=== PATIENT | male | born 1980 ===

== ENCOUNTER 2018-03-28 22:39 | Emergency (ER) | payer MEDICAID, MEDICARE ==
[2018-03-28 22:39] VITALS: BMI 24.3
--- NOTE | 2018-03-28 22:55 | ED PDOC ---
HPI: Psych/Substance Abuse Time Seen by Provider: 03/28/18 22:51 Chief Complaint (Nursing): Alcohol Ingestion Chief Complaint (Provider): etoh History Per: Patient Additional Complaint(s): 37 y/o non-domiciled male presents for evaluation of alcohol intoxication. Patient was found asleep on a bench and admits to alcohol use today. Patient is crying hysterically and yelling upon arrival to ED. In addition to drinking alcohol, patient admits to cocaine use and marijuana use this evening PMD: none Past Medical History Reviewed: Historical Data, Nursing Documentation, Vital Signs Vital Signs: Last Vital Signs Temp 97.9 F 03/28/18 22:48 Pulse 110 H 03/28/18 22:48 Resp 20 03/28/18 22:48 BP 130/77 03/28/18 22:48 Pulse Ox 100 03/28/18 22:48 - Medical History PMH: Anxiety, Post Traumatic Stress Disorder - Surgical History Surgical History: No Surg Hx - Family History Family History: States: No Known Family Hx - Living Arrangements Living Arrangements: Other (non-domiciled) - Social History Alcohol: Social Drugs: Cannabis, Cocaine - Home Medications Home Medications: Ambulatory Orders Medication Instructions Recorded Sertraline [Zoloft] 50 mg PO DAILY 50 Days #50 tab 03/17/18 hydrOXYzine Pamoate [Vistaril] 50 mg PO Q8 PRN 30 Days #90 cap 03/17/18 traZODone [Desyrel] 50 mg PO HS 30 Days #30 tab 03/17/18 - Allergies Allergies/Adverse Reactions: Allergies Allergy/AdvReac Type Severity Reaction Status Date / Time FISH Allergy SWELLING Verified 03/11/18 07:34 Review of Systems ROS Statement: Except As Marked, All Systems Reviewed And Found Negative Psych: Positive for: Other (substance abuse, etoh) Physical Exam - Reviewed Nursing Documentation Reviewed: Yes Vital Signs Reviewed: Yes - Physical Exam Appears: Positive for: Well, Non-toxic, No Acute Distress Skin: Positive for: Normal Color. Negative for: Rash Eye Exam: Positive for: Normal appearance Cardiovascular/Chest: Positive for: Regular Rate, Rhythm Respiratory: Positive for: Normal Breath Sounds. Negative for: Respiratory Distress Back: Negative for: L CVA Tenderness, R CVA Tenderness Extremity: Positive for: Normal ROM Neurologic/Psych: Positive for: Alert, Gait (steady), Other (tearful, yelling) - ECG O2 Sat by Pulse Oximetry: 100 Pulse Ox Interpretation: Normal Medical Decision Making Medical Decision Makin:20 37 year old intoxicated male. Patient is acutely agitated upon arrival. He is crying hysterically and yelling. Patient is uncooperative with ED staff. Plan: 2 mg IM ativan and 5 mg Im haldol for acute agitation BAL Glucose POC 1:30 am: Patient is asleep, vital signs are stable, will continue to monitor 3:30 am: Patient is asleep, arousable, vital signs stable 5:30 am: patient is more alert, vital signs stable. 6:00 am - patient is awake and alert, has steady gait, stable for discharge. Disposition - Clinical Impression Clinical Impression: Alcohol intoxication - Patient ED Disposition Is Patient to be Admitted: No - Disposition Referrals: [facility] [Outside] Disposition: Routine/Home Disposition Time: 05:04 Condition: STABLE Instructions: Alcohol Use - When Is Drinking a Problem? Forms: [employer] (Frisian)
[2018-03-29 06:07] VITALS: BP 126/74; PULSE 85; RESP 18; TEMP 98.1; O2SAT 98
== END 2018-03-29 06:04 | disposition home or self-care (01) ==
LOC: H.ER 22:39
DX: F10.129 Alcohol abuse with intoxication, unspecified (principal); F12.90 Cannabis use, unspecified, uncomplicated; F43.10 Post-traumatic stress disorder, unspecified
CPT/HCPCS: 80320; 82948; 96372; 99285; J1630; J2060

== ENCOUNTER 2018-03-30 21:12 | Emergency (ER) | payer MEDICAID ==
[2018-03-30 21:12] VITALS: BMI 24.3
--- NOTE | 2018-03-30 22:08 | ED PDOC ---
HPI: Psych/Substance Abuse Time Seen by Provider: 03/30/18 21:21 Chief Complaint (Nursing): Substance Abuse Chief Complaint (Provider): Substance Abuse ED Caveat: Acuity of Condition, Intoxicated History Per: Patient, EMS History/Exam Limitations: clinical condition, intoxication Onset/Duration Of Symptoms: Mins Current Symptoms Are (Timing): Still Present Modifying Factor(s): Alcohol, Marijuana Additional Complaint(s): 37 y/o male presents to the ED for evaluation of alcohol intoxication. Patient took an unspecified amount of Trazadone, Vistaril and Zoloft. Patient admits to drinking alcohol and using marijuana. Patient is known to the ED staff from previous ER visits. Patient states took pills for pertuitis reasons not suicidal gesture. History from patient is unreliable due to clinical condition and intoxication. PMD: None Provided Past Medical History Reviewed: Historical Data, Nursing Documentation, Vital Signs Vital Signs: Last Vital Signs Temp 98.0 F 03/30/18 21:13 Pulse 105 H 03/30/18 21:13 Resp BP 147/77 03/30/18 21:13 Pulse Ox 99 03/30/18 21:13 - Medical History PMH: Anxiety, Post Traumatic Stress Disorder Denies: Chronic Kidney Disease - Surgical History Surgical History: No Surg Hx - Family History Family History: States: Unknown Family Hx - Social History Current smoker - smoking cessation education provided: Yes (marijuana) Alcohol: > 2 Drinks/Day - Immunization History Hx Tetanus Toxoid Vaccination: No Hx Influenza Vaccination: No Hx Pneumococcal Vaccination: No - Home Medications Home Medications: Ambulatory Orders Medication Instructions Recorded Sertraline [Zoloft] 50 mg PO DAILY 50 Days #50 tab 03/17/18 hydrOXYzine Pamoate [Vistaril] 50 mg PO Q8 PRN 30 Days #90 cap 03/17/18 traZODone [Desyrel] 50 mg PO HS 30 Days #30 tab 03/17/18 - Allergies Allergies/Adverse Reactions: Allergies Allergy/AdvReac Type Severity Reaction Status Date / Time FISH Allergy SWELLING Verified 03/31/18 04:03 Review of Systems ROS Statement: Except As Marked, All Systems Reviewed And Found Negative Psych: Positive for: Other (EtOH intoxication, polysubstance abuse.) Physical Exam - Reviewed Nursing Documentation Reviewed: Yes Vital Signs Reviewed: Yes - Physical Exam Appears: Positive for: No Acute Distress Head Exam: Positive for: ATRAUMATIC, NORMOCEPHALIC Skin: Positive for: Normal Color, Warm, Dry Eye Exam: Positive for: Normal appearance, EOMI, PERRL Neck: Positive for: Normal, Painless ROM Cardiovascular/Chest: Positive for: Regular Rate, Rhythm. Negative for: Murmur Respiratory: Positive for: Normal Breath Sounds. Negative for: Respiratory Distress Gastrointestinal/Abdominal: Positive for: Normal Exam, Soft. Negative for: Tenderness Extremity: Positive for: Normal ROM. Negative for: Deformity Neurologic/Psych: Positive for: Alert, Oriented. Negative for: Motor/Sensory Deficits - Laboratory Results Result Diagrams: 03/30/18 22:22 03/30/18 23:08 - ECG O2 Sat by Pulse Oximetry: 99 (RA) Pulse Ox Interpretation: Normal Medical Decision Making Medical Decision Making: Time: 2121 Impression: 37 y/o male presents for EtOH intoxication and polysubstance abuse Plan: -- EKG -- Heplock Insertion -- Accucheck -- Call Poison Control As Ordered Time: 2125 Plan: -- Poison Control Consulted Time: 2153 Plan: -- Acetaminophen -- Alcohol Serum -- Urine Drug Screen -- Salicylate -- Urinalysis Labs reviewed show no clinically significant abnormalities with exception of elevated BAL and UDS Scribe Attestation: Documented by Alhaji Dale acting as a scribe for Dr. Nestor Fritz MD. Provider Scribe Attestation: All medical record entries made by the Scribe were at my direction and personally dictated by me. I have reviewed the chart and agree that the record accurately reflects my personal performance of the history, physical exam, medical decision making, and the department course for this patient. I have also personally directed, reviewed, and agree with the discharge instructions and disposition. Disposition - Clinical Impression Clinical Impression: Alcohol intoxication, Polysubstance abuse - Disposition Disposition: Routine/Home Disposition Time: 03:00 Condition: STABLE Instructions: Alcohol Abuse and Alcoholism (DC) Forms: [employer] (Romanian)
[2018-03-30 22:27] LABS: BASO # 0.1 K/uL (0.0-0.2); BASO % 0.9 % (0.0-2.0); EOS # 0.2 K/uL (0.0-0.7); EOS % 2.2 % (0.0-4.0); LYMPH # 2.3 K/uL (1.0-4.3); LYMPH % 22.8 % (20.0-40.0); MEAN CELL VOLUME 94.7 fl (80.0-94.0); MEAN CORPUSCULAR HEMOGLOBIN 32.5 pg (27.0-31.0); MEAN CORPUSCULAR HGB CONC 34.3 g/dL (33.0-37.0); MEAN PLATELET VOLUME 8.1 fl (7.2-11.7); MONO # 0.8 K/uL (0.0-0.8); MONO % 7.6 % (0.0-10.0); NEUT # 6.7 K/uL (1.8-7.0); NEUT % 66.5 % (50.0-75.0); NRBC % 0.1 % (0.0-0.0); RBC 4.61 Mil/uL (4.40-5.90); RED CELL DISTRIBUTION WIDTH 12.3 % (11.5-14.5)
[2018-03-30 22:42] LABS: URINE BILIRUBIN NEGATIVE (NEGATIVE); URINE BLOOD NEGATIVE (NEGATIVE); URINE CLARITY CLEAR (Clear); URINE COLOR YELLOW (YELLOW); URINE GLUCOSE (UA) NEG (Normal); URINE LEUKOCYTE ESTERASE TRACE Leu/uL (Negative); URINE PROTEIN NEGATIVE (NEGATIVE); URINE UROBILINOGEN 0.2-1.0 mg/dL (0.2-1.0)
[2018-03-30 22:46] LABS: ACETAMINOPHEN < 10.0 ug/ml (10.0-30.0); SALICYLATE < 1.0 mg/dl
[2018-03-30 22:48] LABS: PARTIAL THROMBOPLASTIN TIME 30.7 Seconds (25.6-37.1); PROTHROMBIN TIME 10.7 Seconds (9.8-13.1)
[2018-03-30 23:01] LABS: BARBITURATES, UR NEGATIVE (NEGATIVE); BENZODIAZEPINES, UR NEGATIVE (NEGATIVE); OPIATES, UR NEGATIVE (NEGATIVE); PHENCYCLIDINE, UR NEGATIVE (NEGATIVE)
[2018-03-30 23:24] LABS: ALB/GLOB RATIO 1.2 (1.0-2.1); ALT/SGPT 26 U/L (21-72); AST/SGOT 30 U/L (17-59); BLOOD UREA NITROGEN 14 mg/dl (9-20); CALCIUM 8.7 mg/dL (8.4-10.2); GFR AFRICAN-AMERICAN > 60; GFR NON-AFRICAN AMERICAN > 60
[2018-03-31 03:13] VITALS: BP 138/95; PULSE 86; TEMP 97.9
[2018-03-31 05:42] VITALS: O2SAT 99
--- NOTE | 2018-03-31 16:52 | CARD ---
APPROVED REPORT EKG Measurement Heart [id number] <Conclusion> Normal sinus rhythm Possible Left atrial enlargement Borderline ECG
== END 2018-03-31 03:26 | disposition home or self-care (01) ==
LOC: H.ER 21:12
DX: F10.10 Alcohol abuse, uncomplicated (principal); F19.10 Other psychoactive substance abuse, uncomplicated

== ENCOUNTER 2018-04-01 10:49 | Emergency (ER) | payer MEDICAID, MEDICARE ==
[2018-04-01 10:55] VITALS: BMI 29.1
--- NOTE | 2018-04-01 11:31 | ED PDOC ---
HPI: Psych/Substance Abuse Time Seen by Provider: 04/01/18 11:17 Chief Complaint (Nursing): Psychiatric Evaluation Chief Complaint (Provider): Psychiatric Evaluation History Per: Patient History/Exam Limitations: no limitations Onset/Duration Of Symptoms: Days Current Symptoms Are (Timing): Better Associated Symptoms: Anxiety. denies: Suicidal Thoughts, Suicidal Plan Additional Complaint(s): 37 year old male with a PMHx of PTSD presents to the ED for a psychiatric evaluation. Patient had an episode of anxiety in court. He feels better now. Denies homicidal ideation, suicidal ideation, chest pain or palpitation. PMD: No Family Provider Past Medical History Reviewed: Historical Data, Nursing Documentation, Vital Signs Vital Signs: Last Vital Signs Temp 97.8 F 04/01/18 10:55 Pulse 64 04/01/18 10:55 Resp 20 04/01/18 10:55 BP 133/82 04/01/18 10:55 Pulse Ox 98 04/01/18 10:55 - Medical History PMH: Anxiety, Post Traumatic Stress Disorder Denies: Diabetes, Hepatitis, HIV, HTN, Chronic Kidney Disease, Seizures, Sexually Transmitted Disease - Family History Family History: States: Unknown Family Hx - Immunization History Hx Tetanus Toxoid Vaccination: No Hx Influenza Vaccination: No Hx Pneumococcal Vaccination: No - Home Medications Home Medications: Ambulatory Orders Medication Instructions Recorded Sertraline [Zoloft] 50 mg PO DAILY 50 Days #50 tab 03/17/18 hydrOXYzine Pamoate [Vistaril] 50 mg PO Q8 PRN 30 Days #90 cap 03/17/18 traZODone [Desyrel] 50 mg PO HS 30 Days #30 tab 03/17/18 - Allergies Allergies/Adverse Reactions: Allergies Allergy/AdvReac Type Severity Reaction Status Date / Time FISH Allergy SWELLING Verified 03/31/18 04:03 Review of Systems ROS Statement: Except As Marked, All Systems Reviewed And Found Negative Cardiovascular: Negative for: Chest Pain, Palpitations Psych: Positive for: Anxiety. Negative for: Suicidal ideation (homicidal ideation) Physical Exam - Reviewed Nursing Documentation Reviewed: Yes Vital Signs Reviewed: Yes - Physical Exam Appears: Positive for: Non-toxic, No Acute Distress Head Exam: Positive for: ATRAUMATIC, NORMAL INSPECTION, NORMOCEPHALIC Skin: Positive for: Normal Color, Warm, Dry Eye Exam: Positive for: Normal appearance ENT: Positive for: Normal ENT Inspection Neck: Positive for: Normal, Painless ROM, Supple. Negative for: Decreased ROM Cardiovascular/Chest: Positive for: Regular Rate, Rhythm. Negative for: Murmur Respiratory: Positive for: Normal Breath Sounds. Negative for: Decreased Breath Sounds, Wheezing, Respiratory Distress Gastrointestinal/Abdominal: Positive for: Normal Exam, Bowel Sounds, Soft. Negative for: Tenderness, Guarding, Rebound Extremity: Positive for: Normal ROM. Negative for: Tenderness, Pedal Edema, Deformity Neurologic/Psych: Positive for: Alert, Oriented (x3). Negative for: Motor/ Sensory Deficits - ECG O2 Sat by Pulse Oximetry: 98 (RA) Pulse Ox Interpretation: Normal Medical Decision Making Medical Decision Making: Time: 1117 Initial Impression: Psychiatric Evaluation Initial Plan: --Reevaluation Scribe Attestation: Documented by Kimberly Gonzalez, acting as a scribe for Rubens Candelaria MD Provider Scribe Attestation: All medical record entries made by the Scribe were at my direction and personally dictated by me. I have reviewed the chart and agree that the record accurately reflects my personal performance of the history, physical exam, medical decision making, and the department course for this patient. I have also personally directed, reviewed, and agree with the discharge instructions and disposition. Disposition - Clinical Impression Clinical Impression: Anxiety - Patient ED Disposition Is Patient to be Admitted: No Counseled Patient/Family Regarding: Diagnosis, Need For Followup - Disposition Referrals: [facility] [Outside] Disposition: Routine/Home Disposition Time: 11:30 Condition: STABLE Instructions: Anxiety, Adult (DC) Forms: [employer] (Mohawk)
[2018-04-01 11:44] VITALS: BP 120/70; PULSE 80; RESP 16; TEMP 98
[2018-04-01 12:38] VITALS: O2SAT 98
== END 2018-04-01 11:35 | disposition home or self-care (01) ==
LOC: H.ER 10:49
DX: F43.10 Post-traumatic stress disorder, unspecified (principal)

== ENCOUNTER 2018-07-03 02:23 | Emergency (ER) | payer MEDICARE, MEDICAID ==
[2018-07-03 02:23] VITALS: BMI 29.1
[2018-07-03 02:31] VITALS: TEMP 97.6
[2018-07-03] MEDS ORDERED: Multivitamin (MVI) 10 ML, Folic Acid 1 MG, Thiamine 100 MG in Dextrose 5%/0.45% NS 1,00... IV ONE (02:32)
[2018-07-03 02:50] LABS: BASO # 0.1 K/uL (0.0-0.2); BASO % 0.9 % (0.0-2.0); EOS # 0.1 K/uL (0.0-0.7); EOS % 1.1 % (0.0-4.0); HEMOGLOBIN 15.5 g/dL (12.0-18.0); LYMPH # 2.3 K/uL (1.0-4.3); LYMPH % 25.4 % (20.0-40.0); MEAN PLATELET VOLUME 8.1 fl (7.2-11.7); MONO # 0.6 K/uL (0.0-0.8); MONO % 6.9 % (0.0-10.0); NEUT # 5.9 K/uL (1.8-7.0); NEUT % 65.7 % (50.0-75.0); NRBC % 0.1 % (0.0-0.0); RBC 4.84 Mil/uL (4.40-5.90); RED CELL DISTRIBUTION WIDTH 13.4 % (11.5-14.5)
--- NOTE | 2018-07-03 02:55 | ED PDOC ---
HPI: Psych/Substance Abuse Time Seen by Provider: 07/03/18 02:30 Chief Complaint (Nursing): Psychiatric Evaluation Chief Complaint (Provider): alcohol abuse ED Caveat: Intoxicated History Per: Patient History/Exam Limitations: no limitations Onset/Duration Of Symptoms: Hrs (today) Current Symptoms Are (Timing): Still Present Additional Complaint(s): Cristian Alcocer is a 38 year old male, with a past medical history of PTSD, who was brought to the emergency department by EMS for alcohol intoxication. He also admitted to cocaine abuse. Patient is well known to ED staff and provider for multiple visits. History limited due to clinical condition. PMD: None provided. Past Medical History Reviewed: Historical Data, Nursing Documentation, Vital Signs Vital Signs: Last Vital Signs Temp 97.6 F 07/03/18 02:26 Pulse 89 07/03/18 02:26 Resp 17 07/03/18 02:26 BP 110/82 07/03/18 02:26 Pulse Ox 95 07/03/18 02:26 - Medical History PMH: Anxiety, Depression, Post Traumatic Stress Disorder Denies: Diabetes, Hepatitis, HIV, HTN, Chronic Kidney Disease, Seizures, Sexually Transmitted Disease - Surgical History Surgical History: No Surg Hx - Family History Family History: States: Unknown Family Hx - Social History Drugs: Cocaine - Immunization History Hx Tetanus Toxoid Vaccination: No Hx Influenza Vaccination: No Hx Pneumococcal Vaccination: No - Home Medications Home Medications: Ambulatory Orders Medication Instructions Recorded RX: Sertraline [Zoloft] 50 mg PO DAILY 50 Days #50 tab 03/17/18 RX: hydrOXYzine Pamoate [Vistaril] 50 mg PO Q8 PRN 30 Days #90 cap 03/17/18 RX: traZODone [Desyrel] 50 mg PO HS 30 Days #30 tab 03/17/18 - Allergies Allergies/Adverse Reactions: Allergies Allergy/AdvReac Type Severity Reaction Status Date / Time FISH Allergy SWELLING Verified 03/31/18 04:03 Review of Systems Review Of Systems: ROS cannot be obtained secondary to pt's inabilty to answer questions. Physical Exam - Reviewed Nursing Documentation Reviewed: Yes Vital Signs Reviewed: Yes - Physical Exam Appears: Positive for: No Acute Distress Head Exam: Positive for: ATRAUMATIC, NORMOCEPHALIC Skin: Positive for: Normal Color, Warm, Dry Eye Exam: Positive for: Normal appearance, EOMI, PERRL Neck: Positive for: Painless ROM Cardiovascular/Chest: Positive for: Regular Rate, Rhythm. Negative for: Murmur Respiratory: Positive for: Normal Breath Sounds. Negative for: Respiratory Distress Gastrointestinal/Abdominal: Positive for: Normal Exam, Soft. Negative for: Tenderness, Guarding, Rebound Extremity: Positive for: Normal ROM (upper and lower extremities). Negative for: Deformity, Swelling Neurologic/Psych: Positive for: Alert, Mood/Affect (labile), Other (slurred s peech) - Laboratory Results Result Diagrams: 07/03/18 02:48 07/03/18 02:48 - ECG O2 Sat by Pulse Oximetry: 95 (RA) Pulse Ox Interpretation: Normal Medical Decision Making Medical Decision Making: Time: 02:30 Initial Impression: 38 y/o male with substance abuse Initial Plan: --EKG --Alcohol serum --CMP --Drug screen, urine --Crisis evaluation --Urine dipstick --CBC w/ differential --Banana Bag MVI/VITB --Ativan --Reevaluation 07:00 -Patient will be signed out to Dr. Candelaria, pending crisis evaluation. Scribe Attestation: Documented by Rohit Jerez, acting as a scribe for Nestor Fritz MD. Provider Scribe Attestation: All medical record entries made by the Scribe were at my direction and personally dictated by me. I have reviewed the chart and agree that the record accurately reflects my personal performance of the history, physical exam, medical decision making, and the department course for this patient. I have also personally directed, reviewed, and agree with the discharge instructions and disposition. Disposition - Clinical Impression Clinical Impression: Alcohol intoxication, Polysubstance abuse - Disposition Disposition: Transfer of Care Disposition Time: 07:00 Condition: FAIR Forms: [employer] (Italian)
[2018-07-03 03:06] LABS: ALB/GLOB RATIO 1.3 (1.0-2.1); ALT/SGPT 22 U/L (21-72); AST/SGOT 30 U/L (17-59); BLOOD UREA NITROGEN 12 mg/dl (9-20); CALCIUM 8.6 mg/dL (8.4-10.2); GFR NON-AFRICAN AMERICAN > 60
[2018-07-03 03:51] LABS: BARBITURATES, UR NEGATIVE (NEGATIVE); BENZODIAZEPINES, UR NEGATIVE (NEGATIVE); OPIATES, UR NEGATIVE (NEGATIVE); PHENCYCLIDINE, UR NEGATIVE (NEGATIVE)
--- NOTE | 2018-07-03 07:12 | ED PDOC ---
- Laboratory Results Result Diagrams: 07/03/18 02:48 07/03/18 02:48 - ECG O2 Sat by Pulse Oximetry: 95 (RA) Pulse Ox Interpretation: Normal - Progress Re-evaluation Time: 08:21 Condition: Improved (Awake alert oriented x 3 Denies SI/HI) Medical Decision Making Medical Decision Making: Patient signed out to me by Dr. Fritz pending crisis evaluation. 08:19 Patient seen and evaluated by crisis team; per Dr. Alanis patient stable for discharge home. Scribe Attestation: Documented by Deisy Summers, acting as a scribe for Rubens Candelaria MD. Provider Scribe Attestation: All medical record entries made by the Scribe were at my direction and personally dictated by me. I have reviewed the chart and agree that the record accurately reflects my personal performance of the history, physical exam, medical decision making, and the department course for this patient. I have also personally directed, reviewed, and agree with the discharge instructions and disposition. Disposition - Clinical Impression Clinical Impression: Polysubstance abuse, Alcohol intoxication - POA Present On Arrival: None - Disposition Referrals: [facility] [Outside] Disposition: Routine/Home Disposition Time: 08:21 Condition: FAIR Instructions: Alcohol Abuse and Alcoholism (DC) Forms: [employer] (Turkish)
--- NOTE | 2018-07-03 07:52 | CARD ---
APPROVED REPORT Date of service: 07/03/2018 EKG Measurement Heart [id number] <Conclusion> Normal sinus rhythm Left ventricular hypertrophy Abnormal ECG
[2018-07-03 10:39] VITALS: BP 114/60; PULSE 65; RESP 18; O2SAT 97
== END 2018-07-03 10:39 | disposition home or self-care (01) ==
LOC: H.ER 02:23
DX: F10.129 Alcohol abuse with intoxication, unspecified (principal); F14.10 Cocaine abuse, uncomplicated; F32.9 Major depressive disorder, single episode, unspecified; F43.10 Post-traumatic stress disorder, unspecified
CPT/HCPCS: 80053; 82948; 85025; 93005; 96360; 96361; 99285; G0480; J3411; J7042

== ENCOUNTER 2018-07-07 08:22 | Emergency (ER) | payer MEDICARE, MEDICAID ==
[2018-07-07 08:23] VITALS: BMI 25.7
[2018-07-07 08:24] VITALS: BP 130/86; PULSE 78; RESP 16; TEMP 97.9; O2SAT 100
--- NOTE | 2018-07-07 11:05 | ED PDOC ---
HPI: Psych/Substance Abuse Time Seen by Provider: 07/07/18 09:17 Chief Complaint (Nursing): Psychiatric Evaluation Chief Complaint (Provider): Anxiety History Per: Patient History/Exam Limitations: no limitations Additional Complaint(s): Pt presents to ED with anxiety. Denies suicidal ideation, homicidal ideation. Past Medical History Reviewed: Nursing Documentation, Vital Signs Vital Signs: Last Vital Signs Temp 97.9 F 07/07/18 08:23 Pulse 78 07/07/18 08:23 Resp 16 07/07/18 08:23 BP 130/86 07/07/18 08:23 Pulse Ox 100 07/07/18 08:23 - Medical History PMH: Anxiety, Depression, Post Traumatic Stress Disorder Denies: Diabetes, Hepatitis, HIV, HTN, Chronic Kidney Disease, Seizures, Sexually Transmitted Disease - Family History Family History: States: Unknown Family Hx - Immunization History Hx Tetanus Toxoid Vaccination: No Hx Influenza Vaccination: No Hx Pneumococcal Vaccination: No - Home Medications Home Medications: Ambulatory Orders Medication Instructions Recorded Sertraline [Zoloft] 50 mg PO DAILY 50 Days #50 tab 03/17/18 hydrOXYzine Pamoate [Vistaril] 50 mg PO Q8 PRN 30 Days #90 cap 03/17/18 traZODone [Desyrel] 50 mg PO HS 30 Days #30 tab 03/17/18 hydrOXYzine Pamoate [Vistaril] 50 mg PO DAILY PRN #7 cap 07/07/18 - Allergies Allergies/Adverse Reactions: Allergies Allergy/AdvReac Type Severity Reaction Status Date / Time FISH Allergy SWELLING Verified 03/31/18 04:03 Review of Systems ROS Statement: Except As Marked, All Systems Reviewed And Found Negative Psych: Positive for: Anxiety. Negative for: Suicidal ideation Physical Exam - Reviewed Nursing Documentation Reviewed: Yes Vital Signs Reviewed: Yes - Physical Exam Appears: Positive for: Well, No Acute Distress Head Exam: Positive for: ATRAUMATIC, NORMAL INSPECTION Skin: Positive for: Normal Color, Warm, Dry Eye Exam: Positive for: Normal appearance Cardiovascular/Chest: Positive for: Regular Rate, Rhythm Respiratory: Positive for: Normal Breath Sounds Neurologic/Psych: Positive for: Alert, Oriented - ECG O2 Sat by Pulse Oximetry: 100 Medical Decision Making Medical Decision Makin yo male with anxiety. - medical clearance - Crisis evaluation Disposition - Clinical Impression Clinical Impression: PTSD (post-traumatic stress disorder) - Disposition [facility] Disposition: Routine/Home Disposition Time: 11:03 Condition: STABLE Prescriptions: hydrOXYzine Pamoate [Vistaril] 50 mg PO DAILY PRN #7 cap PRN Reason: Anxiety Instructions: Post-traumatic Stress Disorder Forms: [employer] (Paraguayan)
== END 2018-07-07 11:13 | disposition home or self-care (01) ==
LOC: H.ER 08:22
DX: F43.10 Post-traumatic stress disorder, unspecified (principal)